=== PATIENT | female | born 1960 | race Caucasian/White ===

== ENCOUNTER → 2016-11-11 | Outpatient (CLI) | payer BC ==
--- NOTE | 2016-11-11 09:06 | US ---
EXAMINATION TYPE: US axilla extremity RT DATE OF EXAM: 11/11/2016 8:43 AM COMPARISON: Mammogram same date CLINICAL HISTORY: Axillary Mass, Breast Lump N63. Grayscale and color Doppler imaging performed of the right axilla TECHNOLOGIST IMPRESSION: lymph nodes 1.1 x 0.7 x 0.5 cm, 0.4 x 0.5 x 0.5 cm No suspicious mass evident. IMPRESSION: Benign breast ultrasound, recommend clinical management for patient's palpable abnormali ty. Follow-up as indicated.
--- NOTE | 2016-11-11 09:40 | MM ---
Reason for exam: clinical finding. Last mammogram was performed 1 year ago. History: Benign excisional biopsy of the left breast, 2003. Reductions of both breasts, 1999. Indicated problem(s): lump or thickening in the right breast. Physical Findings: Nurse did not find any significant physical abnormalities on exam. MG 3D Diag Mammo W/Cad NISHANT Bilateral CC and MLO view(s) were taken. Prior study comparison: November 03, 2015, bilateral MG work up mamm w CAD BILAT. October 13, 2015, bilateral MG 3d screening mammo w/cad. There are scattered fibroglandular densities. No significant new findings when compared with previous films. These results were verbally communicated with the patient and result sheet given to the patient on 11/11/16. ASSESSMENT: Benign, BI-RAD 2 RECOMMENDATION: Routine screening mammogram of both breasts in 1 year.
== END | disposition home or self-care (01) ==
LOC: RADMAMWWP 07:43
PROVIDERS: ATTEND Family Medicine
DX: N63 Unspecified lump in breast (principal)
CPT/HCPCS: 76882; G0204; G0279

== ENCOUNTER → 2018-03-23 | Outpatient (CLI) | payer BC ==
[2018-03-24 03:21] LABS: Shrimp IgE <0.10 kU/L; Walnut IgE (Food) <0.10 kU/L
[2018-03-24 10:28] LABS: Lettuce IgE Class CLASS 0
[2018-03-24 10:29] LABS: Beef IgE <0.35 kU/L (<0.35); Beef IgE Class CLASS 0; Crab IgE <0.35 kU/L (<0.35); Crab IgE Class CLASS 0; Pork IgE Class CLASS 0
[2018-03-24 10:30] LABS: Salmon IgE <0.35 kU/L (<0.35); Salmon IgE Class CLASS 0
[2018-03-24 10:32] LABS: Apple IgE Class CLASS 0; Chicken IgE Class CLASS 0; Egg Yolk IgE Class CLASS 0; Gluten IgE Class CLASS 0; Lobster IgE <0.35 kU/L (<0.35); Lobster IgE Class CLASS 0; Oat IgE Class CLASS 0; Onion IgE <0.35 kU/L (<0.35); Onion IgE Class CLASS 0; Yeast Bakers/Brew IgE <0.35 kU/L (<0.35)
[2018-03-24 10:33] LABS: Celery IgE <0.35 kU/L (<0.35); Celery IgE Class CLASS 0; Chocolate IgE Class CLASS 0; Cow's Milk IgE Class CLASS 0; Egg White IgE <0.35 kU/L (<0.35); Latex IgE Class CLASS 0; Peanut IgE <0.35 kU/L (<0.35); Potato IgE <0.35 kU/L (<0.35); Potato IgE Class CLASS 0; Soybean IgE <0.35 kU/L (<0.35)
[2018-03-24 10:34] LABS: Avocado Class CLASS 0; Banana IgE Class CLASS 0; Coffee IgE <0.35 kU/L (<0.35); Coffee IgE Class CLASS 0; Hazelnut IgE <0.35 kU/L (<0.35); Hazelnut IgE Class CLASS 0; Kiwi IgE <0.35 kU/L (<0.35); Tea IgE <0.35 kU/L (<0.35)
== END | disposition home or self-care (01) ==
LOC: LABWHC1 14:02
PROVIDERS: ATTEND Nurse Practitioner Family
DX: L50.0 Allergic urticaria (principal)
CPT/HCPCS: 36415; 86001; 86003